=== PATIENT | female | born 2005 | race Caucasian/White ===

== ENCOUNTER 2025-01-12 12:08 | Emergency (ER) | payer OTHER, SELFPAY ==
[2025-01-12 12:08] VITALS: BMI 19.9
[2025-01-12 12:10] VITALS: BP 118/96
[2025-01-12 12:16] VITALS: BP 118/96
[2025-01-12 12:27] LABS: Hematocrit 36.7 % (37.0-47.0); Hemoglobin 12.1 g/dL (12.0-16.0); Mean Corp Hgb Conc. 33.0 g/dL (33.0-37.0); Mean Corpuscular Volume 84.8 fL (81.0-99.0); Nucleated Red Blood Cells % 0 %; Platelet Count 284 10^3/uL (130-400); Red Cell Dist. Width 14.5 % (11.5-14.5)
[2025-01-12 12:47] LABS: ALT (SGPT) 20 U/L (0-35); AST (SGOT) 19 U/L (14-36); Albumin 5.0 g/dl (3.5-5.0); Alkaline Phosphatase 106 U/L (38-126); Blood Urea Nitrogen 11 mg/dl (7-17); Calcium 9.1 mg/dl (8.4-10.2); Carbon Dioxide 27 mmol/L (22-30); Chloride 104 mmol/L (98-107); Estimated Creatinine Clearance 110 ml/min; Glucose 96 mg/dl (70-99); Potassium 4.3 mmol/L (3.5-5.1); Sodium 138 mmol/L (135-145); Total Protein 8.2 g/dl (6.3-8.2); eGFR > 60.00
[2025-01-12 12:51] LABS: Troponin I < 0.012 ng/ml
[2025-01-12 13:00] VITALS: BP 108/77
[2025-01-12 14:00] VITALS: BP 116/74
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
[2025-01-12 14:50] LABS: HCG, Serum Qualitative Screen Negative
[2025-01-12 15:00] VITALS: BP 104/66
== END 2025-01-12 16:05 | disposition home or self-care (01) ==
LOC: EMR 12:08
PROVIDERS: Emergency Medicine; EMERGENCY PHYSICIAN Emergency Medicine
DX: F43.24 Adjustment disorder with disturbance of conduct (principal); G40.909 Epilepsy, unspecified, not intractable, without status epilepticus
CPT/HCPCS: 99284; 80053; 84484; 84703; 85025; 93005